=== PATIENT | female | born 1955 ===

== ENCOUNTER → 2018-08-14 | Outpatient (CLI) | payer BC ==
--- NOTE | 2018-08-14 10:58 | Diagnostic Imaging Report ---
INDICATION: Right shoulder pain post fall TECHNIQUE: 4 views of the right shoulder CORRELATION STUDY: None FINDINGS: The glenohumeral and acromioclavicular alignment are maintained and unremarkable. There is no evidence for acute fracture or dislocation. Mild diffuse bony demineralization. The visualized soft tissues are unremarkable. Degenerative changes visualized thoracic spine. IMPRESSION: 1. Negative for acute bony abnormality about the shoulder. Dictated by: Dictated on workstation # [id number]
== END ==
LOC: RAD FS 10:29
PROVIDERS: ATTEND Nurse Practitioner
DX: M25.511 Pain in right shoulder (principal); W19.XXXA Unspecified fall, initial encounter
CPT/HCPCS: 73030

== ENCOUNTER 2019-03-07 10:44 | Emergency (ER) | payer BC ==
[~2019-03-07] VITALS: Ht 160 cm; Wt 78.1 kg
[2019-03-07 10:55] VITALS: BP_SYST 102; BP_SYST 113; BP_SYST 114; BP_DIAS 59; BP_DIAS 60; BP_DIAS 90
[2019-03-07] MEDS ORDERED: NS IV 1000 ML 1,000 ML IV SCH ×2 (11:15→12:18)
--- NOTE | 2019-03-07 11:16 | ED General ---
General Chief Complaint: Cough/Cold/Flu Symptoms Stated Complaint: GENERAL WEAKNESS Source of Information: Patient, Family Exam Limitations: No Limitations History of Present Illness Date Seen by Provider: Mar 07, 2019 Time Seen by Provider: 11:13 Initial Comments This 63-year-old female presents with generalized weakness. Patient was found to have strep throat 2 days ago. She was treated with antibiotics but failed to improve and was seen in [facility] again this morning where she had a positive nasal swab for the flu. Patient has not been drinking well. She has had no nausea vomiting or diarrhea. She denies shortness of breath or productive cough. She denies severe headache, photophobia, or fever. Allergies and Home Medications Allergies Coded Allergies: No Known Drug Allergies (Unverified , 03/07/19) Home Medications Atenolol 50 Mg Tablet, 50 MG PO DAILY, (Reported) Hydrochlorothiazide 25 Mg Tablet, 25 MG PO DAILY, (Reported) Levothyroxine Sodium 25 Mcg Tablet, 25 MCG PO DAILY, (Reported) Olmesartan Medoxomil 20 Mg Tablet, 20 MG PO BID, (Reported) Patient Home Medication List Home Medication List Reviewed: Yes Review of Systems Review of Systems Constitutional: No chills, No fever; weakness EENTM: no symptoms reported Respiratory: No cough, No short of breath Cardiovascular: No chest pain, No palpitations, No syncope Gastrointestinal: No abdominal pain, No diarrhea; loss of appetite; No nausea, No vomiting Genitourinary: No dysuria, No frequency Musculoskeletal: no symptoms reported Skin: no symptoms reported Psychiatric/Neurological: No Symptoms Reported Hematologic/Lymphatic: No Symptoms Reported Immunological/Allergic: no symptoms reported Past Eyihqgy-Unmtve-Dzjndj Hx Past Med/Social Hx: Reviewed Nursing Past Med/Soc Hx Patient Social History Recent Foreign Travel: No Physical Exam Vital Signs Vital Signs - First Documented Capillary Refill : Height, Weight, BMI Height: '" Weight: lbs. oz. kg; BMI Method: General Appearance: No Apparent Distress, WD/WN Eyes: Bilateral Eye Normal Inspection HEENT: Normal ENT Inspection Neck: Normal Inspection Respiratory: Lungs Clear, Normal Breath Sounds, No Respiratory Distress Cardiovascular: Regular Rate, Rhythm, No Murmur Gastrointestinal: Normal Bowel Sounds, Soft Extremity: Normal Inspection, Normal Range of Motion Neurologic/Psychiatric: Oriented x3, No Motor/Sensory Deficits, Normal Mood/Affect Skin: Normal Color, Warm/Dry Progress/Results/Core Measures Suspected Sepsis SIRS Temperature: Pulse: Respiratory Rate: Laboratory Tests 03/07/19 11:05: White Blood Count 4.8 Blood Pressure / Mean: Laboratory Tests 03/07/19 11:05: Creatinine 0.89, Platelet Count 200, Total Bilirubin 0.3 Results/Orders Lab Results Laboratory Tests Test 03/07/19 11:05 03/07/19 12:01 Range/Units White Blood Count 4.8 4.3-11.0 10^3/uL Red Blood Count 4.20 L 4.35-5.85 10^6/uL Hemoglobin 12.2 11.5-16.0 G/DL Hematocrit 35 35-52 % Mean Corpuscular Volume 89 80-99 FL Mean Corpuscular Hemoglobin 29 25-34 PG Mean Corpuscular Hemoglobin Concent 35 32-36 G/DL Red Cell Distribution Width 11.9 10.0-14.5 % Platelet Count 200 130-400 10^3/uL Mean Platelet Volume 11.3 H 7.4-10.4 FL Neutrophils (%) (Auto) 64 42-75 % Lymphocytes (%) (Auto) 22 12-44 % Monocytes (%) (Auto) 14 H 0-12 % Eosinophils (%) (Auto) 0 0-10 % Basophils (%) (Auto) 0 0-10 % Neutrophils # (Auto) 3.1 1.8-7.8 X 10^3 Lymphocytes # (Auto) 1.1 1.0-4.0 X 10^3 Monocytes # (Auto) 0.7 0.0-1.0 X 10^3 Eosinophils # (Auto) 0.0 0.0-0.3 10^3/uL Basophils # (Auto) 0.0 0.0-0.1 10^3/uL Sodium Level 130 L 135-145 MMOL/L Potassium Level 3.7 3.6-5.0 MMOL/L Chloride Level 91 L 98-107 MMOL/L Carbon Dioxide Level 24 21-32 MMOL/L Anion Gap 15 H 5-14 MMOL/L Blood Urea Nitrogen 10 7-18 MG/DL Creatinine 0.89 0.60-1.30 MG/DL Estimat Glomerular Filtration Rate > 60 BUN/Creatinine Ratio 11 Glucose Level 123 H 70-105 MG/DL Calcium Level 9.6 8.5-10.1 MG/DL Corrected Calcium 9.5 8.5-10.1 MG/DL Total Bilirubin 0.3 0.1-1.0 MG/DL Aspartate Amino Transf (AST/SGOT) 30 5-34 U/L Alanine Aminotransferase (ALT/SGPT) 18 0-55 U/L Alkaline Phosphatase 69 40-136 U/L Total Protein 7.9 6.4-8.2 GM/DL Albumin 4.1 3.2-4.5 GM/DL Urine Color YELLOW Urine Clarity CLEAR Urine pH 7.0 5-9 Urine Specific Nash <1.005 1.016-1.022 Urine Protein NEGATIVE NEGATIVE Urine Glucose (UA) NEGATIVE NEGATIVE Urine Ketones NEGATIVE NEGATIVE Urine Nitrite NEGATIVE NEGATIVE Urine Bilirubin NEGATIVE NEGATIVE Urine Urobilinogen 0.2 < = 1.0 MG/DL Urine Leukocyte Esterase 2+ H NEGATIVE Urine RBC (Auto) TRACE H NEGATIVE Urine RBC RARE /HPF Urine WBC 5-10 H /HPF Urine Squamous Epithelial Cells 0-2 /HPF Urine Crystals NONE /LPF Urine Bacteria TRACE /HPF Urine Casts NONE /LPF Urine Mucus NEGATIVE /LPF Urine Culture Indicated YES My Orders Orders - OSVALDO HERNANDEZ MD Cbc With Automated Diff (03/07/19 11:10) Comprehensive Metabolic Panel (03/07/19 11:10) Ua Culture If Indicated (03/07/19 11:10) Chest 1 View Ap/Pa Only (03/07/19 11:10) Ns Iv 1000 Ml (Sodium Chloride 0.9%) (03/07/19 11:15) Ed Iv/Invasive Line Start (03/07/19 12:18) Ns Iv 1000 Ml (Sodium Chloride 0.9%) (03/07/19 12:18) Urine Culture (03/07/19 12:01) Vital Signs/I&O 03/07/19 03/07/19 03/07/19 10:49 10:49 10:55 Temp 37.0 Pulse 72 73 82 113 Resp 18 B/P (MAP) 127/55 (79) 113/59 (77) 102/60 (74) 114/90 (98) Pulse Ox 100 O2 Delivery Room Air Room Air Capillary Refill : Progress Note : Time: 12:57 Progress Note Patient was given IV fluids in the emergency department. Patient's laboratory evaluation was unremarkable other than an apparent urinary tract infection. Departure Impression Primary Impression: Influenza-like symptoms Additional Impression: UTI (urinary tract infection) Qualified Codes: N39.0 - Urinary tract infection, site not specified Disposition: HOME, SELF-CARE Condition: Improved Departure-Patient Inst. Referrals: [facility],LOCAL PHYSICIAN (PCP) Primary Care Physician Patient Instructions: Acute Cystitis (DC) Add. Discharge Instructions: Bactrim as prescribed. Close follow-up with her doctor on Monday. Return if any problems or questions. All discharge instructions reviewed with patient and/or family. Voiced understanding. Scripts Guaifenesin/Dextromethorphan (Tussin Dm Cough & Chest Syrup) 118 Ml Syrup 118 ML PO q6 PRN for COUGH for 7 Days, ML Prov: OSVALDO HERNANDEZ MD 03/07/19 Sulfamethoxazole/Trimethoprim (Bactrim Ds Tablet) 1 Each Tablet 1 EACH PO BID for 7 Days, TAB Prov: OSVALDO HERNANDEZ MD 03/07/19 OSVALDO HERNANDEZ MD Mar 07, 2019 11:16
[2019-03-07 11:23] LABS: BASOPHILS % (AUTO) 0 % (0-10); EOSINOPHILS % (AUTO) 0 % (0-10); HEMATOCRIT 35 % (35-52); HEMOGLOBIN 12.2 G/DL (11.5-16.0); LYMPHOCYTES # (AUTO) 1.1 X 10^3 (1.0-4.0); LYMPHOCYTES % (AUTO) 22 % (12-44); MEAN CORPUSCULAR HEMOGLOBIN 29 PG (25-34); MEAN CORPUSCULAR HGB CONC 35 G/DL (32-36); MEAN CORPUSCULAR VOLUME 89 FL (80-99); MEAN PLATELET VOLUME 11.3 FL (7.4-10.4); MONOCYTES # (AUTO) 0.7 X 10^3 (0.0-1.0); MONOCYTES % (AUTO) 14 % (0-12); NEUTROPHILS # (AUTO) 3.1 X 10^3 (1.8-7.8); NEUTROPHILS % (AUTO) 64 % (42-75); PLATELET COUNT 200 10^3/uL (130-400); RED CELL DISTRIBUTION WIDTH 11.9 % (10.0-14.5); WHITE BLOOD COUNT 4.8 10^3/uL (4.3-11.0)
--- NOTE | 2019-03-07 11:38 | Diagnostic Imaging Report ---
INDICATION: Lower respiratory infection. EXAMINATION: Portable chest at 11:00 a.m. FINDINGS: Heart size and pulmonary vascularity are normal. Lungs are clear. There are no effusions or pneumothoraces. IMPRESSION: Negative chest. Dictated by: Dictated on workstation # [id number]
[2019-03-07] MEDS ORDERED: LEVO25TA5 PO (11:40)
[2019-03-07] MEDS ORDERED: HYDR25TA4 PO (11:40)
[2019-03-07] MEDS ORDERED: OLME20TA24 PO (11:40)
[2019-03-07] MEDS ORDERED: ATEN50TA PO (11:40)
[2019-03-07 11:43] LABS: BUN/CREATININE RATIO 11; CARBON DIOXIDE 24 MMOL/L (21-32); CHLORIDE 91 MMOL/L (98-107); CREATININE SERUM 0.89 MG/DL (0.60-1.30); GFR ESTIMATED > 60; POTASSIUM 3.7 MMOL/L (3.6-5.0); SODIUM 130 MMOL/L (135-145)
[2019-03-07 11:44] LABS: ALANINE AMINOTRANSFERASE 18 U/L (0-55); ALBUMIN 4.1 GM/DL (3.2-4.5); ALKALINE PHOSPHATASE 69 U/L (40-136); BILIRUBIN,TOTAL 0.3 MG/DL (0.1-1.0); CALCIUM 9.6 MG/DL (8.5-10.1); GLUCOSE 123 MG/DL (70-105); TOTAL PROTEIN 7.9 GM/DL (6.4-8.2)
[2019-03-07 12:18] LABS: COLOR,URINE YELLOW
[2019-03-07 12:19] LABS: BACTERIA,URINE TRACE /HPF; BILIRUBIN,URINE NEGATIVE (NEGATIVE); CLARITY,URINE CLEAR; GLUCOSE, URINE (UA) NEGATIVE (NEGATIVE); KETONES,URINE NEGATIVE (NEGATIVE); LEUKOCYTE ESTERASE ,URINE 2+ (NEGATIVE); NITRITE,URINE NEGATIVE (NEGATIVE); PROTEIN,URINE NEGATIVE (NEGATIVE); RBC,URINE RARE /HPF; SQUAMOUS EPITHELIAL CELL,UR 0-2 /HPF
--- NOTE | 2019-03-07 12:57 | NUR ---
To bathroom per WC, 2nd bag IV NS with 800 ml infused. Pt is advised probable D/C at completion.
[2019-03-07] MEDS ORDERED: SULF1TAB35 PO (13:10)
[2019-03-07] MEDS ORDERED: [UNRECOGNIZED DRUG - CODE] PO (13:12)
--- NOTE | 2019-03-07 13:20 | NUR ---
Called to patient's nephew to request a ride.
[2019-03-07 13:30] VITALS: BP 123/60
--- NOTE | 2019-03-07 13:30 | NUR ---
Pt discharged to relatives arriving, reviewed instructions with them also to be sure they understand what was discussed. Mild cultural/language barrier. Family is going to take scripts to [facility]. Recommend probiotic OTC if patient is opposed to trying yogurt. Past hx yeast infections reported.
== END 2019-03-07 13:30 | disposition home or self-care (01) ==
LOC: EDUNIT# 10:44 → ER FS 10:45
DX: R09.89 Other specified symptoms and signs involving the circulatory and respiratory systems (principal); N39.0 Urinary tract infection, site not specified
CPT/HCPCS: 36415; 71045; 80053; 81000; 85025; 87088